=== PATIENT | male | born 1980 | race Caucasian/White ===

== ENCOUNTER → 2017-03-13 | Outpatient (CLI) | payer OTHER | LOC: LAB 17:31 | DX: R07.9 Chest pain, unspecified (principal); R00.2 Palpitations; R06.00 Dyspnea, unspecified | CPT/HCPCS: 36415; 84439; 84443 ==

== ENCOUNTER 2021-01-21 23:40 | Emergency (ER) | payer OTHER ==
[~2021-01-21 23:40] MED LIST: LODINE CAP 300300 MG PO; NORFLEX 100 MG100 MG PO
== END 2021-01-22 02:20 | disposition home or self-care (01) ==
LOC: ER1 23:40
DX: S61.512A Laceration without foreign body of left wrist, initial encounter (principal); F17.210 Nicotine dependence, cigarettes, uncomplicated; W26.0XXA Contact with knife, initial encounter
CPT/HCPCS: 99282

== ENCOUNTER → 2022-01-04 | Outpatient (CLI) | payer BC, OTHER | LOC: KOH-I 12-24 09:15 | DX: R74.8 Abnormal levels of other serum enzymes (principal); K76.0 Fatty (change of) liver, not elsewhere classified | CPT/HCPCS: 76705 ==